=== PATIENT | male | born 1960 | race Caucasian/White ===

== ENCOUNTER 2018-06-17 17:34 | Emergency (ER) | payer OTHER ==
--- NOTE | 2018-06-17 18:08 | EDPHY ---
H & P Time Seen by Provider: 06/17/18 17:56 HPI/ROS: CHIEF COMPLAINT: Left-sided abdominal and flank pain HISTORY OF PRESENT ILLNESS: Symptoms started last night 11:00 p.m. And then resolved at midnight. He had a normal day at work and then at 3:30 p.m. Symptoms started more severe an 8 out 10 or 9/10 at home. He describes it is left side pain radiating into his groin and up to his back. Severe and a little bit worse with certain movements. He has some chronic increased urination but no dysuria. Denies fever or chills, vomiting or diarrhea, recent injury or trauma. Currently symptoms are mild at 3/10. No testicular symptoms. REVIEW OF SYSTEMS: Eye: no change in vision ENT: no sore throat Cardiac: no chest pain or syncope Pulmonary: no cough or SOB Abdomen: HPI Musculoskeletal: HPI Skin: no rash Neuro: no headache Constitutional: no fever : HPI A comprehensive 10 point review of systems is otherwise negative aside from elements mentioned in the history of present illness. PAST MEDICAL HISTORY: Includes eosinophilic esophagitis Social history: General Appearance: Alert and conversant, cooperative. Eyes: No scleral icterus. ENT, Mouth: Normal mucous membranes. Respiratory: Normal respiratory effort, breath sounds equal, lungs are clear to auscultation. Cardiovascular: Regular rate and rhythm. Gastrointestinal: Abdomen is soft and non tender. No rebound or guarding, nondistended, no pulsatile mass, normal male . Neurological: Alert, face symmetric, normal motor and sensory in extremities. Skin: Warm and dry, no rashes. No zoster. Musculoskeletal: No peripheral edema. Psychiatric: Not agitated. Emergency Department course/MDM: Differential considered including but not limited to vascular, colitis, renal colic or UTI, muscular. Plan noncontrast CT discussed and consented, urinalysis. Declined pain medication. 1925: Negative CT per Dr. Hill. Patient specifically asked me about urethral cystitis, eosinophilic esophagitis affecting his intestines, his slightly enlarged prostate. I told him I thought those were all unlikely causes for his symptoms. I did emphasize that a definitive diagnosis is not established in the emergency department but I think it is reasonable to treat his symptoms and see how things go. He states he is comfortable going home and will return if he gets worse. Smoking Status: Never smoked Constitutional: Initial Vital Signs Temperature (C) 36.6 C 04/22/19 17:38 Heart Rate 78 06/17/18 17:38 Respiratory Rate 17 06/17/18 17:38 Blood Pressure 132/80 H 06/17/18 17:38 O2 Sat (%) 96 06/17/18 17:38 O2 Delivery Mode Room Air Allergies/Adverse Reactions: No Known Allergies Allergy (Unverified 06/17/18 17:38) Home Medications: Medication Instructions Recorded ZYRTEC 06/17/18 Zantac 06/17/18 Medical Decision Making - Diagnostics Imaging Results: Imaging Impressions Abdomen/Pelvis CT 06/17/18 18:08 Impression: 1. Negative for nephrolithiasis or obstructive uropathy. 2. Mildly prominent prostate resulting in invagination of the bladder floor. 3. See above report for additional findings. Results called and discussed with FLORENCIA DORSEY M.D. on 06/17/2018 at 19:22. Imaging: Discussed imaging studies w/ land mobile radio technician Radiologist - Data Points Laboratory Results: 06/17/18 18:08 Urine Color YELLOW Urine Appearance CLEAR Urine pH 8.0 H (5.0-7.5) Ur Specific [place] 1.013 (1.002-1.030) Urine Protein NEGATIVE (NEGATIVE) Urine Ketones TRACE H (NEGATIVE) Urine Blood NEGATIVE (NEGATIVE) Urine Nitrate NEGATIVE (NEGATIVE) Urine Bilirubin NEGATIVE (NEGATIVE) Urine Urobilinogen NEGATIVE EU EU (0.2-1.0) Ur Leukocyte Esterase NEGATIVE (NEGATIVE) Urine Glucose NEGATIVE (NEGATIVE) Medications Given: Discontinued Medications Hydrocodone Bitart/Acetaminophen ([place] 5/325mg Prepack#6) 1 btl TAKEHOME EDNOW ONE Stop: 06/17/18 19:41 Last Admin: 06/17/18 19:53 Dose: 1 btl Departure - Departure Disposition: Home, Routine, Self-Care Clinical Impression: Left flank pain Condition: Good Instructions: Hydrocodone/Acetaminophen (By mouth), Flank Pain (ED) Additional Instructions: No evidence of aneurysm or kidney stone or colitis, or other bowel problem on your CT. Referrals: Dr. Leigha [Other] - As per Instructions (your PCP)
[2018-06-17] MEDS ORDERED: HYDROCOD/APAP 5/325 PREPACK#6 BTL TAKEHOME ONE (19:40)
[2018-06-17 19:56] VITALS: BP 114/81
== END 2018-06-17 19:56 | disposition home or self-care (01) ==
DX: R10.32 Left lower quadrant pain (principal); K20.0 Eosinophilic esophagitis